=== PATIENT | female | born 1990 | race Caucasian/White ===

== ENCOUNTER → 2017-09-27 | Outpatient (CLI) | payer OTHER ==
[2017-09-27 16:30] LABS: HCT 37.6 % (34.0-46.0); HGB 13.2 gm/dL (11.4-16.0); MCH 30.8 pg (25.0-35.0); MCHC 35.1 g/dL (31.0-37.0); MCV 87.7 fL (80.0-100.0); Mean Platelet Volume 7.1; Platelet Count 252 k/uL (150-450); RBC 4.29 m/uL (3.80-5.40); RDW 13.4 % (11.5-15.5)
[2017-09-27 16:37] LABS: Glucose 69 mg/dL (74-99)
--- NOTE | 2017-09-28 10:30 | US ---
EXAMINATION TYPE: US OB anatomy transabd DATE OF EXAM: 09/27/2017 COMPARISON: NONE HISTORY: O36.62x0 Large for dates TECHNIQUE: Transabdominal (TA) EXAM MEASUREMENTS: GESTATIONAL AGE / DATING Physician Established: (18 weeks/6 days) EDC: 02/22/18 Dates by LMP: unknown Dates by First Scan: not available Dates by Current Scan for: (18 weeks/6 days) EDC: 02/22/18 SURVEY IUP: Single PLACENTA: Posterior PREVIA: No previa DREA: 12.8 cm CERVICAL LENGTH (transabdominal: norm > 3.0cm): 3.7 cm BIOMETRY PRESENTATION: Vertex LIE: Longitudinal BPD: 4.2 cm 18 weeks / 6 days HC: 16.6 cm 19 weeks / 3 days AC: 13.2 cm 18 weeks / 5 days FL: 2.8 cm 18 weeks / 4 days ESTIMATED WEIGHT IN GRAMS: 253 grams ESTIMATED WEIGHT IN LBS/OZ: 0 lbs. 9 oz. WEIGHT PERCENTAGE BASED ON ESTABLISHED DATE: 37 % HC/AC: 1.26 FL/AC: 21 HEART RATE: 165 bpm RHYTHM: Normal ANATOMY SEEN (within normal limits): * Lateral Vent (< 1 cm) 0.7 cm * Cisterna Magna (< 1.1 cm) 0.4 cm * Nuchal Fold (< 0.6 cm) 0.4 cm * Cerebellum (varies with age) 1.7 cm Choroid Plexus (bilateral) Midline Falx Cavus Septi Pellucidi Four Chamber Heart Outflow tracts: LVOT/RVOT Stomach Situs Nose / Lips Diaphragm Kidneys (bilateral) Bladder Cord Insert Three Vessel Cord Longitudinal Spine Transverse Spine Arms (bilateral) Legs (bilateral) Preliminary results phoned to Dr. Reza per order. IMPRESSION: Single intrauterine gestation estimated at 18 weeks 6 days gestation. This would have a calculated ED C of 02/22/2018. 2. Cardiac activity measures 165 bpm. 3. Fetus is at the 37th percentile based on weight.
== END | disposition home or self-care (01) ==
LOC: RADUSWWP 14:34
PROVIDERS: ATTEND Obstetrics & Gynecology
DX: O36.62X0 Maternal care for excessive fetal growth, second trimester, not applicable or unspecified (principal); Z3A.14 14 weeks gestation of pregnancy
CPT/HCPCS: 36415; 76811; 82565; 82947; 85027; 86762; 86780; 86850; 86900; 86901; 87340

== ENCOUNTER 2018-02-09 21:50 | Outpatient (CLI) | payer OTHER ==
[2018-02-09] MEDS ORDERED: ONDANSETRON 4 MG/2 ML VIAL ONE (23:00)
[2018-02-09] MEDS ORDERED: LACTATED RINGERS 1,000 ML BAG IV ONE (23:00)
[2018-02-10 06:00] LABS: Appearance,Urine Clear (Clear); Bacteria,Urine Rare /hpf; Bilirubin,Urine Negative (Negative); Blood,Urine Negative (Negative); Color,Urine Light Yellow; Glucose,Urine (UA) Negative (Negative); Ketones,Urine Negative (Negative); Leukocyte Esterase,Urine Negative (Negative); Mucus,Urine Rare /hpf; Nitrite,Urine Negative (Negative); Protein,Urine Negative (Negative); Specific Gravity,Urine 1.007 (1.001-1.035); Urobilinogen,Urine <2.0 mg/dL (<2.0); WBC,Urine 2 /hpf (0-5)
== END 2018-02-09 23:33 | disposition home or self-care (01) ==
LOC: FBPOP 21:50
PROVIDERS: ATTEND Obstetrics & Gynecology
DX: O26.893 Other specified pregnancy related conditions, third trimester (principal); E86.0 Dehydration; Z3A.38 38 weeks gestation of pregnancy
CPT/HCPCS: 59025; 96360; 96375; 81003; G0463; J2405; 99214

== ENCOUNTER 2018-02-16 05:45 | Inpatient (IN) | payer OTHER ==
[2018-02-16] MEDS ORDERED: CITRIC ACID-SODIUM CITRATE 15 ML CUP PO ONE (06:11)
[2018-02-16] MEDS ORDERED: LACTATED RINGERS 1,000 ML IV ONE (06:11)
[2018-02-16] MEDS ORDERED: LACTATED RINGERS 1,000 ML IV SCH (06:15)
[2018-02-16 06:22] VITALS: BMI 43.9
[2018-02-16 06:26] LABS: Basophils % (A) 0 %; Eosinophils # (A) 0.3 k/uL (0-0.7); Eosinophils % (A) 2 %; HCT 36.6 % (34.0-46.0); Lymphocytes # (A) 2.3 k/uL (1.0-4.8); Lymphocytes % (A) 19 %; MCH 27.7 pg (25.0-35.0); MCHC 32.8 g/dL (31.0-37.0); MCV 84.4 fL (80.0-100.0); Mean Platelet Volume 8.2; Monocytes # (A) 0.7 k/uL (0-1.0); Monocytes % (A) 6 %; Neutrophils # (A) 8.8 k/uL (1.3-7.7); Neutrophils % (A) 71 %; Platelet Count 239 k/uL (150-450); RBC 4.33 m/uL (3.80-5.40); RDW 14.4 % (11.5-15.5); WBC 12.4 k/uL (3.8-10.6)
[2018-02-16] MEDS ORDERED: CLINDAMYCIN 600 MG in DEXTROSE 5% IN WATER 50 ML IVPB STA ×2 (06:38)
[2018-02-16] MEDS ORDERED: OXYTOCIN 10 UNIT/ML 1 ML VIAL ONE (08:00)
[2018-02-16] MEDS ORDERED: MORPHINE SULFATE (PF) 0.3 MG/0.3 ML SYR ONE (08:00)
[2018-02-16] MEDS ORDERED: KETOROLAC 30 MG/ML 1 ML VIAL ONE (08:00)
[2018-02-16] MEDS ORDERED: NALBUPHINE 10 MG/ML VIAL (10ML MDV) ONE (08:00)
[2018-02-16] MEDS ORDERED: ePHEDrine SULFATE/0.9% NACL/PF 50 MG/5 ML SYRINGE IV ONE (08:00)
[2018-02-16] MEDS ORDERED: ONDANSETRON 4 MG/2 ML VIAL ONE (08:00)
[2018-02-16] MEDS ORDERED: diphenhydrAMINE 50 MG CAP PO PRN (08:46)
[2018-02-16] MEDS ORDERED: HYDROcodone/APAP 5-325MG 1 EACH TAB PO PRN (08:46)
[2018-02-16] MEDS ORDERED: diphenhydrAMINE 25 MG CAP PO PRN (08:46)
[2018-02-16] MEDS ORDERED: diphenhydrAMINE 50 MG/ML 1 ML VIAL IVP PRN ×2 (08:46)
[2018-02-16] MEDS ORDERED: METOCLOPRAMIDE 5 MG/ML 2 ML VIAL IVP PRN (08:46)
[2018-02-16] MEDS ORDERED: NALOXONE 0.4 MG/ML 1 ML VIAL IV PRN (08:46)
[2018-02-16] MEDS ORDERED: ONDANSETRON 4 MG/2 ML VIAL IVP PRN (08:46)
[2018-02-16] MEDS ORDERED: ZOLPIDEM 5 MG TAB PO PRN (08:46)
[2018-02-16] MEDS ORDERED: ACETAMINOPHEN TAB 325 MG TAB PO PRN (08:46)
--- NOTE | 2018-02-16 08:48 | P.HPOB ---
History of Present Illness H&P Date: 02/16/18 Chief Complaint: Intrauterine at term: Family planning: Previous section Patient is a 27-year-old at 39 weeks gestation who ryes repeat with tubal ligation. Her course was overall unremarkable and she is feeling well at this time. Her vital signs are stable and she is afebrile. Pertinent labs include O- blood type, Rh antibody was negative, rubella immune, hepatitis B surface antigen and RPR were both negative. Past Medical History Past Medical History: Asthma History of Any Multi-Drug Resistant Organisms: None Reported Past Surgical History: Section Additional Past Surgical History / Comment(s): [place] Tooth Extraction Past Anesthesia/Blood Transfusion Reactions: No Reported Reaction Past Psychological History: No Psychological Hx Reported Smoking Status: Former smoker Past Alcohol Use History: None Reported Additional Past Alcohol Use History / Comment(s): QUIT SMOKING JUL 2017 Past Drug Use History: None Reported - Past Family History Mother Family Medical History: Hypertension Medications and Allergies Home Medications Medication Instructions Recorded Confirmed Type Pnv,Calcium 72/Iron/Folic Acid 1 each PO DAILY 02/10/18 02/16/18 History [ Plus Tablet] Allergies Allergy/AdvReac Type Severity Reaction Status Date / Time cefaclor [From [facility]] Allergy Anaphylaxis Verified 02/16/18 06:10 Exam Osteopathic Statement: *. No significant issues noted on an osteopathic structural exam other than those noted in the History and Physical/Consult. Vital Signs Temp Pulse Resp BP 02/16/18 06:15 98.2 F 83 16 122/71 Intake and Output 02/15/18 02/16/18 02/16/18 22:59 06:59 14:59 Other: Weight 102.058 kg - OBG Physical Exam Breast: both: normal (no masses) Abdomen: bowel sounds normal, no diffuse tenderness, no bruit present, no guarding noted, no hepatomegaly, no splenomegaly, no mass Vulva: both: normal Vagina: normal moisture, no discharge Cervix: no lesion, no discharge Uterus: normal size, normal contour Adnexa: both: normal Anus/Rectum: normal perianal skin, no rectal mass, no hemorrhoids, heme negative Results Result Diagrams: 02/16/18 06:15 Abnormal Lab Results - Last 24 Hours (Table) 02/16/18 Range/Units 06:15 WBC 12.4 H (3.8-10.6) k/uL Neutrophils # 8.8 H (1.3-7.7) k/uL
--- NOTE | 2018-02-16 08:52 | P.OP ---
Date of Procedure: 02/16/18 Preoperative Diagnosis: Intrauterine at term: Family planning Postoperative Diagnosis: Same with adhesion of bladder high on the uterus Procedure(s) Performed: Repeat low transverse section with lysis of adhesion Anesthesia: spinal Surgeon: Triston Reza Telehealth Director #1: Miguelangel Nieto Estimated Blood Loss (ml): 500 IV fluids (ml): 1,600 Urine output (ml): 100 Pathology: other (Fallopian tube segments) Condition: stable Disposition: floor Operative Findings: Female scores were 9 and 9 at one and 5 minutes a speculum weight was 7 lbs. 7 oz. Description of Procedure: Patient was taken to the operating suite where a spinal anesthetic was found be adequate. She was prepped and draped in the normal sterile fashion and placed in the dorsal supine position with leftward tilt. Initially a Pfannenstiel skin incision was made and this incision was then carried through to underlying layer of the fascia with the second knife. Fascia was then nicked in midline and this opening was extended laterally with Finley scissors. Superior and inferior aspect of this incision were then grasped tented up and bluntly and sharply dissected off the rectus muscles. Rectus muscles were then divided in the midline and sharp dissection through the peritoneum was made. This opening was then extended superiorly and inferiorly with good visualization of both bowel bladder. Adhesion of the bladder high on the uterus was noted and lysed. Then the bladder flap was entered and sharply dissected across face uterus and bluntly dissected out of the operative field. Knife was then used to incise uterus and this incision was fully developed with hemostat. The incision was then extended bluntly and artificial rupture membranes was performed with clear fluid noted. Head was then atraumatically delivered mouth nares bulb suctioned. Shoulders were delivered without difficulty followed by the remainder the baby. Umbilical cord was clamped cut usual fashion an nursery personnel was present to assume care. Placenta was then delivered intact and Pitocin was added to the IV. Uterus was then exteriorized cleared of clots and debris and closed in 21 layer with 0 Vicryl suture. Once excellent hemostasis was obtained fallopian tubes were identified and grasped with hemostat at approximately midway point. Window was then created in the mesosalpinx and 2 proximal and 2 distal 2-0 silk sutures were placed 2 cm apart with the intervening segment excised and tips cauterized. This was done bilaterally. Blood and debris was then suctioned from the posterior cul-de-sac and the uterus was reinserted into the abdomen. Reinspection of the incision and fallopian tubes revealed no areas of bleeding. Peritoneum was then closed with 0 Vicryl suture fascial layer was closed with 0 Vicryl suture one layer of 3-0 Vicryl was placed in the deep subcuticular tissues to reapproximate the skin and skin was then closed with 3-0 Vicryl subcuticularly. Sponge, lap, needle counts were all correct 2. Patient was then taken to the recovery room in stable and satisfactory condition.
[2018-02-16] MEDS ORDERED: Rhogam IMMUNE GLOBULIN 1,500 UNIT/1 ML IM ONE (11:02)
[2018-02-16] MEDS: LACTATED RINGERS 1,000 ML IV SCH ×2 (11:15→20:18)
[2018-02-16] MEDS: KETOROLAC 30 MG/ML 1 ML VIAL IVP PRN ×2 (14:33→23:13)
[2018-02-16] MEDS: SENNOSIDES-DOCUSATE SODIUM 1 EACH TAB PO SCH (19:38)
[2018-02-16 20:13] LABS: Basophils % (A) 0 %; Eosinophils # (A) 0.1 k/uL (0-0.7); Eosinophils % (A) 1 %; HCT 31.1 % (34.0-46.0); HGB 10.4 gm/dL (11.4-16.0); Lymphocytes # (A) 1.3 k/uL (1.0-4.8); Lymphocytes % (A) 11 %; MCH 29.1 pg (25.0-35.0); MCHC 33.3 g/dL (31.0-37.0); MCV 87.1 fL (80.0-100.0); Mean Platelet Volume 8.4; Monocytes # (A) 0.6 k/uL (0-1.0); Monocytes % (A) 5 %; Neutrophils # (A) 10.3 k/uL (1.3-7.7); Neutrophils % (A) 83 %; Platelet Count 184 k/uL (150-450); RBC 3.57 m/uL (3.80-5.40); RDW 14.5 % (11.5-15.5); WBC 12.4 k/uL (3.8-10.6)
[2018-02-16 20:17] VITALS: RESP 16
[2018-02-17] MEDS: LACTATED RINGERS 1,000 ML IV SCH (02:39)
[2018-02-17] MEDS: KETOROLAC 30 MG/ML 1 ML VIAL IVP PRN (05:01)
[2018-02-17 06:57] LABS: Basophils % (A) 0 %; Eosinophils # (A) 0.2 k/uL (0-0.7); Eosinophils % (A) 1 %; HCT 29.6 % (34.0-46.0); HGB 10.1 gm/dL (11.4-16.0); Lymphocytes # (A) 1.4 k/uL (1.0-4.8); Lymphocytes % (A) 12 %; MCH 29.6 pg (25.0-35.0); MCHC 34.1 g/dL (31.0-37.0); MCV 86.8 fL (80.0-100.0); Monocytes # (A) 0.6 k/uL (0-1.0); Monocytes % (A) 5 %; Neutrophils # (A) 9.3 k/uL (1.3-7.7); Neutrophils % (A) 80 %; Platelet Count 184 k/uL (150-450); RBC 3.41 m/uL (3.80-5.40); RDW 14.7 % (11.5-15.5); WBC 11.7 k/uL (3.8-10.6)
--- NOTE | 2018-02-17 07:14 | P.PN ---
Progress Note - Text Date: 02-17-18Time: 705 The patient is status post section Vital signs stable VAS: 0-10 Patient has no complaints of pain. The patient incurred some minimal itching yesterday, this itching is now subsiding. Pain meds to be managed by service.
[2018-02-17] MEDS: SENNOSIDES-DOCUSATE SODIUM 1 EACH TAB PO SCH ×2 (08:03→21:20)
--- NOTE | 2018-02-17 09:02 | P.PNOBGPC ---
Subjective - Subjective Principal diagnosis: Postop day 1 Interval history: Overall doing very well. She is involuting, voiding and she is tolerating a diet. Patient reports: Reports appetite normal, Reports voiding normally, Reports pain well controlled, Reports ambulating normally : doing well Objective - Vital Signs Latest vital signs: Vital Signs Temp Pulse Resp BP Pulse Ox 02/17/18 08:00 97.7 F 110 H 16 102/61 02/17/18 05:59 16 98 02/17/18 03:46 97.9 F 104 H 16 107/70 97 02/17/18 02:00 16 99 02/16/18 23:30 98.4 F 79 16 109/64 100 02/16/18 22:00 16 99 02/16/18 19:30 97.9 F 79 16 109/71 99 02/16/18 18:42 83 18 94/51 02/16/18 18:05 84 16 86/59 02/16/18 16:30 97.9 F 76 18 88/46 99 02/16/18 11:53 98 F 76 16 106/65 100 02/16/18 10:52 97.6 F 80 16 108/61 100 02/16/18 10:22 72 16 109/61 99 02/16/18 09:52 59 L 16 117/55 100 02/16/18 09:37 63 16 106/69 99 02/16/18 09:22 62 16 120/59 98 02/16/18 09:07 65 16 104/56 99 Intake and Output 02/16/18 02/17/18 02/17/18 22:59 06:59 14:59 Intake Total 600 Output Total 400 900 Balance -400 -300 Intake: Other 600 Output: Urine 400 900 Straight 500 - Exam Lungs: bilateral: normal Chest: Normal S1, Normal S2 Extremities: Present: normal Abdomen: Present: normal appearance, soft. Absent: distention, tenderness Incision: Present: normal, dry, intact Uterus: Present: normal, firm - Labs Labs: Abnormal Lab Results - Last 24 Hours (Table) 02/16/18 02/17/18 Range/Units 19:00 06:37 WBC 12.4 H 11.7 H (3.8-10.6) k/uL RBC 3.57 L 3.41 L (3.80-5.40) m/uL Hgb 10.4 L 10.1 L (11.4-16.0) gm/dL Hct 31.1 L 29.6 L (34.0-46.0) % Neutrophils # 10.3 H 9.3 H (1.3-7.7) k/uL
[2018-02-17] MEDS: IBUPROFEN 600 MG TAB PO PRN ×2 (13:08→21:23)
[2018-02-18] MEDS: IBUPROFEN 600 MG TAB PO PRN (05:28)
[2018-02-18] MEDS: SENNOSIDES-DOCUSATE SODIUM 1 EACH TAB PO SCH (07:58)
[2018-02-18 08:01] VITALS: BP 117/55; PULSE 75; TEMP 98.4
--- NOTE | 2018-02-18 09:02 | P.DS ---
Providers Date of admission: 02/16/18 05:45 Expected date of discharge: 02/18/18 Attending physician: Triston Reza Primary care physician: Stated None Hospital Course: Patient is doing very well postop day 2. She is involuting, voiding, and she is tolerating her diet. Other than back pain she voices no complaints. Vital signs are stable and afebrile. Heart regular, lungs clear, extremities without pain. Abdomen is soft uterus is firm and incision is clean dry and intact. Assessment post op day 2. Plan discharged home follow up with me in 1 week. Prescription for [place] and Motrin are provided and all the questions are answered for her prior to her discharge. Discharge instructions thoroughly reviewed. Patient Condition at Discharge: Good Plan - Discharge Summary Discharge Rx Participant: Yes New Discharge Prescriptions: New HYDROcodone/APAP 5-325MG [[place] 5-325] 1 tab PO Q4HR PRN 3 Days #18 tab PRN Reason: Pain Ibuprofen [Motrin] 600 mg PO Q6HR PRN #30 tab PRN Reason: Pain No Action Pnv,Calcium 72/Iron/Folic Acid [ Plus Tablet] 1 each PO DAILY Discharge Medication List Pnv,Calcium 72/Iron/Folic Acid [ Plus Tablet] 1 each PO DAILY 02/10/18 [ History] HYDROcodone/APAP 5-325MG [[place] 5-325] 1 tab PO Q4HR PRN 3 Days #18 tab [Rx] Ibuprofen [Motrin] 600 mg PO Q6HR PRN #30 tab 02/18/18 [Rx] Follow up Appointment(s)/Referral(s): Triston Reza DO [Doctor of Osteopathic Medicine] - 1 Week Activity/Diet/Wound Care/Special Instructions: No heavy lifting, limit stairs and driving, and pelvic rest. If any high temperatures, heavy bleeding, or severe pain call my office Discharge Disposition: HOME SELF-CARE
== END 2018-02-18 10:30 | disposition home or self-care (01) | DRG 766 ==
LOC: 4FBP 05:45 → EDSTATUS 08:00
PROVIDERS: ADMIT Obstetrics & Gynecology; ATTEND Obstetrics & Gynecology
PROC: 0UB70ZZ Excision of Bilateral Fallopian Tubes, Open Approach (ICD-10-PCS; 2018-02-16)
PROC: 3E0234Z Introduction of Serum, Toxoid and Vaccine into Muscle, Percutaneous Approach (ICD-10-PCS; 2018-02-16)
PROC: 10D00Z1 Extraction of Products of Conception, Low, Open Approach (ICD-10-PCS; principal; 2018-02-16 08:19)
DX: O34.211 Maternal care for low transverse scar from previous cesarean delivery (principal); Z37.0 Single live birth; O99.52 Diseases of the respiratory system complicating childbirth; J45.909 Unspecified asthma, uncomplicated; O99.89 Other specified diseases and conditions complicating pregnancy, childbirth and the puerperium; M54.9 Dorsalgia, unspecified; O26.893 Other specified pregnancy related conditions, third trimester; Z31.82 Encounter for Rh incompatibility status; Z3A.39 39 weeks gestation of pregnancy; Z87.891 Personal history of nicotine dependence; Z88.1 Allergy status to other antibiotic agents; Z82.49 Family history of ischemic heart disease and other diseases of the circulatory system
CPT/HCPCS: 85025; 85461; 86850; 86900; 86901; 88302